=== PATIENT | female | born 1990 | race Hispanic/Latino ===

== ENCOUNTER 2018-11-03 09:58 | Emergency (ER) | payer OTHER ==
[~2018-11-03] VITALS: Ht 162.6 cm; Wt 81.2 kg
[2018-11-03] MEDS ORDERED: ACETAMINOPHEN 325 MG TAB PO STA (10:36)
[2018-11-03] MEDS ORDERED: ALBUTEROL/IPRATROPIUM 3 ML NEB NEB ONE (10:45)
--- NOTE | 2018-11-03 12:06 | NUR ---
REFUSED CHEST XRAY; AWARE
== END 2018-11-03 12:24 | disposition home or self-care (01) ==
LOC: FSED 09:58
DX: O26.92 Pregnancy related conditions, unspecified, second trimester (principal); R50.9 Fever, unspecified; R05 Cough; J20.9 Acute bronchitis, unspecified
CPT/HCPCS: 87400; 93005; 99283